=== PATIENT | female | born 1975 | race Caucasian/White ===

== ENCOUNTER 2016-12-15 14:57 | Emergency (ER) | payer BC ==
[2016-12-15] MEDS ORDERED: MORPHINE 4 MG/ML SYR ONE (19:18)
[2016-12-15] MEDS ORDERED: ONDANSETRON 4 MG VIAL ONE (19:18)
[2016-12-15] MEDS ORDERED: DICYCLOMINE 10 MG CAP ONE (19:18)
[2016-12-15] MEDS ORDERED: SODIUM CHLORIDE 0.9% 1,000 ML ONE (19:18)
== END 2016-12-15 22:37 | disposition home or self-care (01) ==
LOC: ER 14:57
DX: K52.9 Noninfective gastroenteritis and colitis, unspecified (principal)
CPT/HCPCS: 36415; 74176; 80053; 81003; 83690; 84703; 85025; 96361; 96374